=== PATIENT | female | born 1985 | race American Indian/Alaskan Native ===

== ENCOUNTER 2021-09-10 20:08 | Emergency (ER) | payer SELFPAY ==
[2021-09-10] MEDS ORDERED: SODIUM CHLORIDE 0.9% 1000 ML 1,000 ML IV ONE (20:44)
[2021-09-10] MEDS ORDERED: METOCLOPRAMIDE 10 MG/2 ML INJ IV ONE (20:45)
[2021-09-10] MEDS ORDERED: MORPHINE 4 MG/1 ML INJ IV ONE (20:45)
--- NOTE | 2021-09-10 20:45 | Emergency Department Report ---
ED Abdominal Pain HPI - General Chief Complaint: Abdominal Pain Stated Complaint: LOWER BACK PAIN, ABD PAIN Time Seen by Provider: 09/10/21 20:31 Source: patient, EMS Mode of arrival: Stretcher Limitations: No Limitations - History of Present Illness Initial Comments: 36-year-old female with a past medical history of pancreatitis secondary to alcohol abuse presents to the ER today via EMS with complaints of severe abdominal pain. Patient states that she has been having upper abdominal pain radiating to her back for 1 week with associated nausea and vomiting. She states that the emesis was initially bilious, but she states that it is now "brown". She states that she has been taking Zofran which she has at home without much relief of her vomiting. She denies any diarrhea constipation, hematemesis or melena. She denies any fever or chills. Patient states that she has been taking shots of alcohol over the past 2 days try to ease her pain. She states that she had to have repeat surgery in November of this year secondary to pancreatitis. She denies any fever, chills, chest pain, shortness of breath or any additional symptoms at this time MD Complaint: abdominal pain Severity scale (0 -10): 10 - Related Data Previous Rx's Medication Instructions Recorded Last Taken Type Hyoscyamine Subl [Levsin Sl] 0.125 mg SL Q6HR #20 tablet 09/10/21 Unknown Rx Promethazine [Phenergan] 25 mg MD Q6HR PRN #30 supp.rect 09/10/21 Unknown Rx Allergies Allergy/AdvReac Type Severity Reaction Status Date / Time No Known Allergies Allergy Unverified 09/10/21 20:24 ED Review of Systems ROS: Stated complaint: LOWER BACK PAIN, ABD PAIN Other details as noted in HPI Comment: All other systems reviewed and negative Constitutional: denies: chills, fever Eyes: denies: eye pain, eye discharge, vision change ENT: denies: ear pain, throat pain Respiratory: denies: cough, shortness of breath, SOB with exertion, SOB at rest, wheezing Cardiovascular: denies: chest pain, palpitations, dyspnea on exertion, edema, syncope, paroxysmal nocturnal dyspnea Endocrine: no symptoms reported Gastrointestinal: abdominal pain, nausea, vomiting. denies: diarrhea, constipation, hematemesis, melena, hematochezia Genitourinary: denies: urgency, dysuria, frequency, hematuria, discharge, abnormal menses, dyspareunia Musculoskeletal: denies: back pain, joint swelling, arthralgia Skin: denies: rash, lesions Neurological: denies: headache, weakness, numbness, paresthesias, confusion, abnormal gait, vertigo Psychiatric: denies: anxiety, depression, auditory hallucinations, visual hallucinations, homicidal thoughts, suicidal thoughts Hematological/Lymphatic: denies: easy bleeding, easy bruising, swollen glands ED Past Medical Hx - Past Medical History Additional medical history: pancreatitis - Surgical History Additional Surgical History: whipple - Medications Home Medications: Home Medications Medication Instructions Recorded Confirmed Last Taken Type Hyoscyamine Subl [Levsin Sl] 0.125 mg SL Q6HR #20 tablet 09/10/21 Unknown Rx Promethazine [Phenergan] 25 mg MD Q6HR PRN #30 supp.rect 09/10/21 Unknown Rx ED Physical Exam - General Limitations: No Limitations General appearance: alert, in distress (Patient appears to being in pain and uncomfortable actively vomiting in the room; emesis does have coffee-ground appearance) - Head Head exam: Present: atraumatic, normocephalic, normal inspection - Eye Eye exam: Present: normal appearance, PERRL, EOMI Pupils: Present: normal accommodation - Neck Neck exam: Present: normal inspection, full ROM - Respiratory Respiratory exam: Present: normal lung sounds bilaterally. Absent: respiratory distress, wheezes, rales, rhonchi - Cardiovascular Cardiovascular Exam: Present: normal rhythm, tachycardia, normal heart sounds - GI/Abdominal GI/Abdominal exam: Present: soft, tenderness (Diffuse upper abdominal tenderness with guarding), guarding. Absent: distended, rebound, rigid - Neurological Exam Neurological exam: Present: alert, oriented X3, CN II-XII intact, normal gait - Psychiatric Psychiatric exam: Present: normal affect, normal mood - Skin Skin exam: Present: intact ED Course Vital Signs 09/10/21 09/10/21 09/10/21 20:12 21:02 22:31 Temperature 98.2 F Pulse Rate 109 H 118 H Respiratory 18 20 12 Rate Blood Pressure 128/86 119/85 [Left] O2 Sat by Pulse 100 100 Oximetry 09/10/21 09/11/21 22:42 01:00 Temperature 98.4 F Pulse Rate 101 H Respiratory 20 20 Rate Blood Pressure 122/86 [Left] O2 Sat by Pulse 100 Oximetry ED Medical Decision Making - Lab Data Result diagrams: 09/10/21 20:51 09/10/21 20:51 - Radiology Data Radiology results: report reviewed Patient: DANIEL MOORE MR#: [id number] : 1985 Acct:[id number] Age/Sex: 36 / F ADM Date: 09/10/21 Loc: ED Attending Dr: Ordering Physician: YOLETTE BENTON Date of Service: 09/10/21 Procedure(s): CT abdomen pelvis w con Accession Number(s): [id number] cc: YOLETTE BENTON CT ABDOMEN AND PELVIS WITH CONTRAST HISTORY: Abdominal pain/hx pancreatitis. COMPARISON: None. TECHNIQUE: CT images of the abdomen and pelvis were obtained following administration of intravenous contrast. All CT scans at this location are performed using CT dose reduction for ALARA by means of automated exposure control. CONTRAST: 100 ml of intravenous contrast administered. FINDINGS: Lungs/bones: Lung bases are clear Abdomen/pelvis: There is diffuse fatty infiltration liver the liver is enlarged. Adrenal glands, pancreas and kidneys appear normal. Pancreatic calcifications are seen t hroughout. Pancreatic ductal dilatation is identified multiple surgical clips are seen within the upper abdomen portable hepatic region. Portal vein is patent. No significant inflammatory change is identified. Several small bowel loops may have some mild wall thickening however no evidence for obstruction. There is mild thickening of the cecum and proximal ascending colon. No acute bone findings IMPRESSION: 1. Abnormality within the pancreas with multiple pancreatic calcifications and pancreatic ductal dilatation. Findings could represent chronic pancreatitis. Underlying lesion abnormality cannot be completely excluded on this examination and a follow-up CT pancreas could be performed. No significant inflammatory changes seen at this time. 2. Fatty infiltration the liver. 3. Mild thickening of several small bowel loops without evidence for obstruction. There is also thickening of the ascending colon. Findings could represent mild inflammation/infection. No free fluid is identified. Signer Name: Erick Goel MD Signed: 09/10/2021 11:38 PM Workstation Name: [id number] Transcribed By: SHIREEN Dictated By: KEESHA GOEL MD Electronically Authenticated By: KEESHA GOEL MD Signed Date/Time: 09/10/212337 DD/ TD/TT: - Medical Decision Making labs reviewed -- CBC unremarkable. CMP show elevated LFTs but this could be chronic given patient history of alcohol abuse. CT shows chronic changes but nothing acute. Patient states this is still hurting though she was found to be sleeping comfortably in the bed. Informed patient of all lab and CT results. Informed her that her work-up today does not suggest acute pancreatitis of any other acute findings requiring admission, or surgical consult at this time. Patient will be given medication to help with her pain, nausea and vomiting and recommend that she follows up with her GI specialist. Patient was stable at time of d/c. Critical care attestation.: If time is entered above; I have spent that time in minutes in the direct care of this critically ill patient, excluding procedure time. ED Disposition Clinical Impression: Chronic pancreatitis, ETOH abuse, Elevated LFTs Disposition: HOME / SELF CARE / HOMELESS Is pt being admited?: No Does the pt Need Aspirin: No Condition: Stable Instructions: Alcohol Abuse and Dependence Information, Adult, Chronic Pancreatitis, Abdominal Pain (ED) Additional Instructions: Continue taking your regular home medications. You can use the Phenergan suppos itories to help with any nausea or vomiting. Take the Levsin as prescribed to help with pain. I do recommend that you follow-up with GI and or your primary care doctor for continued care of your chronic pancreatitis and pain. Return to the ER if your symptoms changes or worsens in any way. Prescriptions: Hyoscyamine Subl [Levsin Sl] 0.125 mg SL Q6HR #20 tablet Promethazine [Phenergan] 25 mg MD Q6HR PRN #30 supp.rect PRN Reason: Vomiting Referrals: [facility] [Provider Group] - 3-5 Days Time of Disposition: 00:02
[2021-09-10] MEDS ORDERED: HYDROmorphone 1 MG/1 ML INJ IV ONE (20:58)
[2021-09-10 21:18] LABS: Hematocrit 35.6 % (30.3-42.9); Hemoglobin 11.8 gm/dl (10.1-14.3); Mean Corpuscular HGB Conc 33 % (30-34); Mean Corpuscular Volume 86 fl (79-97); Platelet Count 289 K/mm3 (140-440); Red Blood Count 4.13 M/mm3 (3.65-5.03); Red Cell Distribution Width 15.6 % (13.2-15.2)
[2021-09-10 21:25] LABS: Alanine Aminotransferase 58 units/L (7-56); Albumin 3.1 g/dL (3.9-5); Blood Urea Nitrogen 8 mg/dL (7-17); Calcium 8.3 mg/dL (8.4-10.2); Hemolysis Index 9
[2021-09-10 21:27] LABS: BUN/Creatinine Ratio 20; Bilirubin,Direct < 0.2 mg/dL (0-0.2)
[2021-09-10] MEDS ORDERED: diphenhydrAMINE 50 MG/ML VIAL IV ONE (22:26)
[2021-09-10 22:33] LABS: Bilirubin,Urine NEG (Negative); Blood,Urine NEG (Negative); Color,Urine Yellow (Yellow); Mucus,Urine 2+ /HPF; Urobilinogen,Urine < 2.0 mg/dL (<2.0)
--- NOTE | 2021-09-10 23:42 | Cat Scan Report ---
CT ABDOMEN AND PELVIS WITH CONTRAST HISTORY: Abdominal pain/hx pancreatitis. COMPARISON: None. TECHNIQUE: CT images of the abdomen and pelvis were obtained following administration of intravenous contrast. All CT scans at this location are performed using CT dose reduction for ALARA by means of automated exposure control. CONTRAST: 100 ml of intravenous contrast administered. FINDINGS: Lungs/bones: Lung bases are clear Abdomen/pelvis: There is diffuse fatty infiltration liver the liver is enlarged. Adrenal glands, lao creas and kidneys appear normal. Pancreatic calcifications are seen throughout. Pancreatic ductal dil atation is identified multiple surgical clips are seen within the upper abdomen portable hepatic hallie on. Portal vein is patent. No significant inflammatory change is identified. Several small bowel loop s may have some mild wall thickening however no evidence for obstruction. There is mild thickening of the cecum and proximal ascending colon. No acute bone findings IMPRESSION: 1. Abnormality within the pancreas with multiple pancreatic calcifications and pancreatic ductal dila tation. Findings could represent chronic pancreatitis. Underlying lesion abnormality cannot be comple tely excluded on this examination and a follow-up CT pancreas could be performed. No significant infl ammatory changes seen at this time. 2. Fatty infiltration the liver. 3. Mild thickening of several small bowel loops without evidence for obstruction. There is also thick ening of the ascending colon. Findings could represent mild inflammation/infection. No free fluid is identified. Signer Name: Erick Goel MD Signed: 09/10/2021 11:38 PM Workstation Name: [id number]
[2021-09-11 00:15] LABS: Total Cells Counted 100
[2021-09-11 00:17] LABS: Platelet Estimate Consistent w Auto; Target Cells 2+
[2021-09-11] MEDS ORDERED: HYDROcodone/ACETAMINOPHEN 5-325 MG TAB PO ONE (00:37)
[2021-09-11 05:41] VITALS: BP 122/86
== END 2021-09-11 01:00 | disposition home or self-care (01) ==
LOC: ED 20:08
DX: K86.1 Other chronic pancreatitis (principal); F10.10 Alcohol abuse, uncomplicated; R79.89 Other specified abnormal findings of blood chemistry; Z98.890 Other specified postprocedural states
CPT/HCPCS: 36415; 74177; 80048; 80076; 81001; 83690; 84703; 85007; 85025; 96361; 96374; 96375; 99284; J1170; J1200; J2765; J7030; Q9967